=== PATIENT | male | born 1995 | race Caucasian/White ===

== ENCOUNTER 2017-05-22 11:12 | Inpatient (IN) | payer MEDICARE ==
[~2017-05-22] VITALS: Ht 180.3 cm; Wt 77.1 kg
[~2017-05-22 11:12] MED LIST: ACET-6134 PO
--- NOTE | 2017-05-22 11:12 | NUR ---
Patient was BIB [place] [facility] [employer] and taken to bed 06.
--- NOTE | 2017-05-22 11:12 | NUR ---
Mercedes castellano in ED - 05/22/17 at 1116 by CHIDI Patient was BIB [place] [employer] and taken to OF to be evaluated for medical clearance.
[2017-05-22 11:24] VITALS: BP 149/87
--- NOTE | 2017-05-22 11:30 | NUR ---
INFORMED PT NEED URINE, CLAIMED IM NOT READY YET, WILL OFFER WATER.
--- NOTE | 2017-05-22 11:33 | NUR ---
PT STATES WE WERE HAVING DEEP CONVERSATION,WE BOTH SMOKE WEED THIS MORNING, DENIES N/V/D; SKIN IS PINK/WARM/DRY; AAOX4 WITH EVEN AND STEADY GAIT; LUNGS CLEAR BL; HR EVEN AND REGULAR; PT DENIES ANY FEVER, CP, SOB, OR COUGH AT THIS TIME; PATIENT STATES PAIN OF 0/10 AT THIS TIME; PATIENT POSITIONED FOR COMFORT; HOB ELEVATED; BEDRAILS UP X2; BED DOWN. NOTED DRY BLOOD ON BOTH HANDS CLAIMED I HELPED MY GIRLFRIEND IN CLEANING HER FACE THATS WHY I GOT THIS BLOOD, PT WITH EPISODES OF CRYING AT THIS TIME.
--- NOTE | 2017-05-22 11:48 | NUR ---
LAB AT BEDSIDE, EMT DOING EKG AT THIS TIME ALSO
[2017-05-22 11:53] LABS: BASOPHILS # (AUTO) 0.2 K/uL (0.00-0.22); BASOPHILS % (AUTO) 1.7 % (0.0-2.0); EOSINOPHILS # (AUTO) 0.1 K/uL (0-0.4); EOSINOPHILS % (AUTO) 0.8 % (0.0-4.0); HEMATOCRIT 44.5 % (36-52); HEMOGLOBIN 15.2 g/dL (12.0-18.0); LYMPHOCYTES # (AUTO) 1.9 K/uL (2.0-11.5); LYMPHOCYTES % (AUTO) 17.9 % (20.5-51.1); MEAN CORPUSCULAR HEMOGLOBIN 29 pg (27-31); MEAN CORPUSCULAR HGB CONC 34 g/dL (33-37); MEAN CORPUSCULAR VOLUME 85 fL (80-94); MONOCYTES % (AUTO) 9.1 % (1.7-9.3); NEUTROPHILS # (AUTO) 7.7 K/uL (1.8-7.7); NEUTROPHILS % (AUTO) 70.5 % (42.2-75.2); PLATELET COUNT (AUTO) 244 K/uL (140-450); RED BLOOD CELL COUNT(AUTO) 5.23 MIL/uL (4.20-6.10); RED CELL DISTRIBUTION WIDTH 11.8 % (11.6-13.7); WHITE BLOOD COUNT (AUTO) 10.9 K/uL (4.5-11.0)
--- NOTE | 2017-05-22 12:11 | NUR ---
RELAYED TO DR. PAUL RESULT OF URINE DIPSTICK
[2017-05-22 12:12] LABS: ALBUMIN 4.7 g/dL (3.4-5.0); ANION GAP 13.5 (8-16); ASPARTATE AMINOTRANSFERASE 16 U/L (15-37); CARBON DIOXIDE 27.1 mmol/L (21-32); CHLORIDE 103 mmol/L (98-107); CREATININE 1.1 mg/dL (0.7-1.3); GFR ARICAN-AMERICAN 110 mL/min (>90); GLUCOSE 85 mg/dL (74-106); POTASSIUM 3.6 mmol/L (3.5-5.1); SODIUM SERUM 140 mmol/L (136-145); TOTAL BILIRUBIN 1.3 mg/dL (0.0-1.0); UREA NITROGEN, BLOOD 15 mg/dL (7-18)
[2017-05-22 12:17] LABS: ACETAMINOPHEN < 0.5 ug/ml (10-30); SALICYLATE < 2.8 mg/dL (2.8-20.0)
--- NOTE | 2017-05-22 12:25 | NUR ---
SITTER AT BEDSIDE
--- NOTE | 2017-05-22 12:36 | NUR ---
PT SLEEPING AT THIS TIME
[2017-05-22 12:39] LABS: BARBITURATE, URINE NEG. ng/ml (NEG <=200); BENZODIAZEPINE, URINE POS. ng/mL (NEG <=200); CANNABINOID, URINE POS. ng/mL (NEG <=50); COCAINE, URINE NEG. ng/mL (NEG <=300); OPIATE, URINE NEG. ng/mL (NEG <=2000); PHENCYCLIDINE SCREEN,URINE NEG. ng/mL (NEG <=25)
--- NOTE | 2017-05-22 14:02 | NUR ---
PT SLEEPING NO UNUSUAL OBSERVATION NOTED, SITTER AT BEDSIDE
[2017-05-22] MEDS ORDERED: ONDANSETRON 4 MG/2 ML VIAL IVP PRN (14:10)
[2017-05-22] MEDS ORDERED: HYDROcodone/APAP 7.5/325 MG 1 TAB PO PRN (14:10)
[2017-05-22] MEDS ORDERED: ACETAMINOPHEN 325 MG TAB PO PRN (14:10)
[2017-05-22 14:50] LABS: APPEARANCE,URINE CLEAR (CLEAR); BLOOD, URINE NEGATIVE (NEGATIVE); COLOR,URINE YELLOW (YELLOW); LEUKOCYTE ESTERASE ,URINE NEGATIVE (NEGATIVE); NITRITE, URINE NEGATIVE (NEGATIVE); UGLUCOSE NEGATIVE (NEGATIVE)
[2017-05-22 14:55] LABS: BILIRUBIN,URINE NEGATIVE (NEGATIVE)
[2017-05-22 14:56] LABS: PROTHROMBIN TIME 13.3 secs (10.8-13.4)
[2017-05-22 15:04] LABS: CHOL/HDL RATIO 2.7 (1-4.5); FREE T4 (FREE THYROXINE) 1.29 ng/dL (0.76-1.46); MAGNESIUM 2.2 mg/dL (1.8-2.4); PHOSPHORUS 2.9 mg/dL (2.5-4.9); THYROID STIMULATING HORMONE 2.44 uIU/mL (0.34-3.74)
[2017-05-22] MEDS ORDERED: NACL 0.9% 1,000 ML IV SCH (15:40)
--- NOTE | 2017-05-22 15:46 | NUR ---
CALL PLACE TO TELE GAVE REPORT TO MONSERRAT PT STILL SLEEPING ,SITTER AT BEDSIDE
--- NOTE | 2017-05-22 16:35 | NUR ---
PT SLEEPING NO DISTRESS NOTED
--- NOTE | 2017-05-22 16:50 | NUR ---
TRANSFER TO THE FLOOR BY CHARGE NURSE IN STABLE CONDITION
--- NOTE | 2017-05-22 17:06 | NUR ---
RECEIVED PT FROM ER NURSE VIA KAREN, PT AMBULATED TO BED WITHOUT ASSISTANCE, PT A/O X 4, ON ROOM AIR, PT DENIES PAIN, NO S/S OF ACUTE DISTRESS, IV PATENT AND INTACT RIGHT AC, SAFETY PRECAUTIONS TAKEN, BELONGINGS WITH SECURITY, SUICIDAL IDEATION PRECAUTIONS TAKEN IN THE ROOM, WILL CONT TO MONITOR.
[2017-05-22 17:16] VITALS: BP 125/74
[2017-05-22 17:50] VITALS: BP 125/74
--- NOTE | 2017-05-22 18:18 | NUR ---
PT LEFT THE UNIT FOR HEAD CT, PT IN STABLE CONDITION.
--- NOTE | 2017-05-22 18:50 | NUR ---
PT IV TAKEN OUT TIP INTACT, NO S/S OF ACUTE DISTRESS, PT AMBULATED OUT TO FRONT LOBBY, PT IN STABLE CONDITION.
[2017-05-22] MEDS ORDERED: SERTRALINE 50 MG TAB PO SCH (21:00)
[2017-05-22] MEDS ORDERED: DOCUSATE SODIUM 100 MG GELCAP PO SCH (21:00)
--- NOTE | 2017-05-23 08:03 | NUR ---
FAXED RETRO [facility]LA, ER REPORT, H&P, CONSULT AND DISCHARGE SUMMARY TO ALLIED PHYSICIAN [phone] PHONE [phone]
== END 2017-05-22 18:54 | disposition left against medical advice (07) | DRG 770 ==
LOC: MED 11:12 → MIC 14:09 → UNDOADMIN 14:09 → MTU 14:09
PROVIDERS: ADMIT Family Medicine; ATTEND Family Medicine
DX: F13.129 Sedative, hypnotic or anxiolytic abuse with intoxication, unspecified (principal); N17.0 Acute kidney failure with tubular necrosis; G92 Toxic encephalopathy; R45.851 Suicidal ideations; S09.90XA Unspecified injury of head, initial encounter; E86.0 Dehydration; F11.129 Opioid abuse with intoxication, unspecified; F15.129 Other stimulant abuse with intoxication, unspecified; F17.210 Nicotine dependence, cigarettes, uncomplicated; Z53.21 Procedure and treatment not carried out due to patient leaving prior to being seen by health care provider; X83.8XXA Intentional self-harm by other specified means, initial encounter; Y93.89 Activity, other specified; Y92.89 Other specified places as the place of occurrence of the external cause; Y99.8 Other external cause status
CPT/HCPCS: 36415; 70450; 71010; 80053; 80305; 81003; 82150; 83036; 83690; 83735; 83880; 84100; 84439; 84443; 84484; 85025; 85610; 85730; 87081; 99285; G0480; G0482